=== PATIENT | male | born 1960 | race Caucasian/White ===

== ENCOUNTER → 2017-04-21 | Outpatient (CLI) | payer OTHER ==
[~2017-04-21] MED LIST: ACYCLOVIR400 MG PO; ADVAIR 250/501 EA INH; ASPIRIN CHEWABL81 MG PO; CLARITIN REDITA10 MG PO; COMBIVENT1 ARO IH; CORDARONE200 MG PO; COREG12.5 MG PO; Clopidogrel75 MG PO; Coumadin5 MG PO; DILTIA XT240 MG PO; DOXYCYCLINE100 M3 PO; EPA1000 MG PO; FLEXERIL5 MG PO; FLONASE0.05 MG/AC NS; FLUCONAZOLE200 MG PO; LASIX40 MG PO; MOTRIN800 MG PO; MULTI VITAMINS1 TAB PO; NYSTATIN100000 U/M PO; OMEPRAZOLE20 MG PO; OMEPRAZOLE40 MG PO; PREDNISONE10 MG PO; PROPAFENONE HC150 MG PO; SIMVASTATIN20 MG PO; SINGULAIR10 MG PO; SPIRIVA18 MCG PO; TOPROL XL25 MG PO; VICODIN 5/500 505 MG PO; VITAMIN D1000 IU PO; XARELTO20 M1 PO; ZOCOR40 MG PO
[2017-04-21 12:00] LABS: HEMATOCRIT 38.3 % (42.0-52.0); HEMOGLOBIN 12.2 g/dl (14.0-18.0); MEAN CELL VOLUME 76.9 fl (80.0-94.0); MEAN CORPUSCULAR HGB 24.5 pg (27.0-31.0); MEAN CORPUSCULAR HGB CONC 31.9 g/dl (33.0-37.0); MEAN PLATELET VOLUME 11.3 fl (9.6-12.3); RED BLOOD COUNT 4.98 10*6/uL (4.50-5.90); RED CELL DISTRI WIDTH 14.6 % (0-14.5)
[2017-04-21 12:27] LABS: ALBUMIN 3.2 gm/dl (3.1-4.5); ALKALINE PHOSPHATASE 125 U/L (45-117); BUN 7 mg/dl (7-24); CHLORIDE 110 mmol/L (98-107); CHOLESTEROL 199 mg/dL (<200); CPK 80 U/L (39-308); CREATININE 0.87 mg/dL (0.70-1.30); HDL CHOLESTEROL 41 mg/dl (40-60); LDL CHOLESTEROL 130 mg/dL (9-159); SGOT/AST 21 IU/L (3-35); SGPT/ALT 16 U/L (12-78); SODIUM 140 mmol/L (136-145); TOTAL PROTEIN 7.7 gm/dL (6.4-8.2); TRIGLYCERIDES 141 mg/dl (<150); VLDL CHOLESTEROL 28 mg/dL (6-40)
== END | disposition home or self-care (01) ==
LOC: LAB 11:20
PROVIDERS: Family Medicine
DX: Z12.5 Encounter for screening for malignant neoplasm of prostate (principal); I25.10 Atherosclerotic heart disease of native coronary artery without angina pectoris; E78.00 Pure hypercholesterolemia, unspecified; F41.1 Generalized anxiety disorder; K21.9 Gastro-esophageal reflux disease without esophagitis; E74.00 Glycogen storage disease, unspecified; I21.9 Acute myocardial infarction, unspecified

== ENCOUNTER → 2017-10-03 | Outpatient (CLI) | payer OTHER ==
[2017-10-03 13:38] LABS: HEMATOCRIT 40.4 % (42.0-52.0); HEMOGLOBIN 13.2 g/dl (14.0-18.0); MEAN CELL VOLUME 79.5 fl (80.0-94.0); MEAN CORPUSCULAR HGB CONC 32.7 g/dl (33.0-37.0); MEAN PLATELET VOLUME 11.6 fl (9.6-12.3); RED BLOOD COUNT 5.08 10*6/uL (4.50-5.90); RED CELL DISTRI WIDTH 15.1 % (0-14.5)
[2017-10-03 13:44] LABS: ALBUMIN 3.7 gm/dl (3.1-4.5); ALKALINE PHOSPHATASE 112 U/L (45-117); BUN 7 mg/dl (7-24); CHLORIDE 103 mmol/L (98-107); CHOLESTEROL 198 mg/dL (<200); CREATININE 1.01 mg/dL (0.70-1.30); HDL CHOLESTEROL 42 mg/dl (40-60); LDL CHOLESTEROL 119 mg/dL (9-159); SGOT/AST 32 IU/L (3-35); SGPT/ALT 21 U/L (12-78); SODIUM 136 mmol/L (136-145); TOTAL PROTEIN 7.8 gm/dL (6.4-8.2); TRIGLYCERIDES 184 mg/dl (<150); VLDL CHOLESTEROL 37 mg/dL (6-40)
== END | disposition home or self-care (01) ==
LOC: LAB 13:00
PROVIDERS: Family Medicine
DX: E78.00 Pure hypercholesterolemia, unspecified (principal); I48.91 Unspecified atrial fibrillation; R53.83 Other fatigue; F41.1 Generalized anxiety disorder; E74.00 Glycogen storage disease, unspecified; I25.10 Atherosclerotic heart disease of native coronary artery without angina pectoris; K21.9 Gastro-esophageal reflux disease without esophagitis

== ENCOUNTER → 2017-11-21 | Day surgery (SDC) | payer OTHER ==
[~2017-11-21] VITALS: Ht 172.7 cm; Wt 74.8 kg
[~2017-11-21] MED LIST changes: +ARNUITY ELLIPT50 MCG NAS; +AZELASTINE137 MCG/0. NAS; +DULERA 200 MCG8.8 GM INH; +FERGON240 MG PO; +GOOD NEIGHBOR150 M1 PO; +IPRATROPIUM BRO15 ML NAS; +PROVENTIL HFA6.7 GM INH; +VENTOLIN 02.5 MG/3 M INH; -VITAMIN D1000 IU PO; +VITAMIN D50000 UNIT PO
--- NOTE | ~2017-11-21 | PROC NOTE ---
[place], [place] PROCEDURE NOTE [id number] UNIT #: [id number] ROOM: DOCTOR: MILADY COOPER MD,ROBERT BIRTHDATE: [birth year] DOS: 11/21/2017 OUTPATIENT BRONCHOSCOPY REPORT PREOPERATIVE DIAGNOSES: Persistent severe nonresolving cough with intermittent wheezing with maximum medical management. POSTOPERATIVE DIAGNOSES: Evident acute bronchitis and minimal secretion present in the endobronchial tree, which was removed with the help of normal saline wash. PROCEDURE DESCRIPTION: Informed consent was obtained for the patient. The patient was brought to the OR and placed in supine position. Conscious sedation administered by the Anesthesia Department. After achieving proper sedation, airway introduced into the mouth. Bronchoscope advanced through the airway into laryngeal area. Epiglottis and vocal cords were seen. Vocal cords were moving symmetrically with movements. Bronchoscope was advanced to the vocal cord further into the tracheal lumen, which was noted with a small amount of scattered secretions suctioned out. Inflammatory changes of tracheal lumen was noted. All the endobronchial tree including right upper, right middle, right lower, left upper, lingula, and lower lobe bronchial all examined. All the secretions are removed from the endobronchial tree and sent for culture. Procedure was well tolerated by the patient. Postoperative findings were discussed with the patient's sister in the recovery room. No change in treatment otherwise will be necessary. ROBERT HENNING MD CM:PROCNOTE:PROCEDURE NOTE [id number] ROBERT COOPER MD
[2017-11-21 07:54] VITALS: BP 131/80
[2017-11-21 08:20] VITALS: BP 142/74
[2017-11-21 08:35] VITALS: BP 134/71
[2017-11-21 08:50] VITALS: BP 138/62
[2017-11-22 13:06] LABS: ACID FAST SPEC PROCESSING Concentration (.)
[2017-12-19 13:03] LABS: ORGANISM ID, MOLD Final report (.); RESULT 1 Final Identification (.)
[2018-01-01 08:10] LABS: ACID FAST CULTURE Negative (.)
== END | disposition home or self-care (01) ==
LOC: SDC 11-20 08:53
PROVIDERS: Internal Medicine Critical Care Medicine
DX: J20.9 Acute bronchitis, unspecified (principal); E78.00 Pure hypercholesterolemia, unspecified; I48.91 Unspecified atrial fibrillation; I25.2 Old myocardial infarction; I50.9 Heart failure, unspecified; K21.9 Gastro-esophageal reflux disease without esophagitis; J44.9 Chronic obstructive pulmonary disease, unspecified; F41.8 Other specified anxiety disorders; Z98.890 Other specified postprocedural states; Z91.018 Allergy to other foods; Z88.1 Allergy status to other antibiotic agents; Z79.82 Long term (current) use of aspirin; Z79.01 Long term (current) use of anticoagulants; Z79.899 Other long term (current) drug therapy

== ENCOUNTER → 2018-07-06 | Outpatient (CLI) | payer OTHER ==
--- NOTE | ~2018-07-06 | PF ---
[place], [place] PULMONARY FUNCTION TEST [id number] UNIT #: [id number] ROOM: DOCTOR: MILADY COOPER MD,ROBERT BIRTHDATE: [birth year] DOS: 07/06/2018 REASON FOR TEST: Ordered by Dr. German for assessment of amiodarone therapy. BRIEF HISTORY: The patient is recorded 58-year-old male, height of 68 inches, weight of 160 pounds, BMI 24.3. The patient is reported with symptoms of shortness breath with exertion, nonproductive cough and wheezing. There were no past tobacco use. SPIROMETRY: FVC of 4.02 liters, 96% predicted value. FEV1 of 2.55 liters, 75% predicted value. Ratio of FEV1/FVC is 63%. Lung diffusion is recorded 95%, normal. IMPRESSION: The patient with findings consistent with mild COPD and normal lung diffusion. Plethysmography was not performed. Need testing with plethysmography. ROBERT HENNING MD CM:PFREPORT:PULMONARY FUNCTION TEST [id number] ROBERT COOPER MD
[2018-07-06 13:49] LABS: ALBUMIN 3.6 gm/dl (3.1-4.5); ALKALINE PHOSPHATASE 104 U/L (45-117); BUN 10 mg/dl (7-24); CHLORIDE 100 mmol/L (98-107); CREATININE 1.07 mg/dL (0.70-1.30); POTASSIUM 4.3 mmol/L (3.5-5.1); SGOT/AST 27 IU/L (3-35); SGPT/ALT 22 U/L (12-78); SODIUM 134 mmol/L (136-145)
== END | disposition home or self-care (01) ==
LOC: LAB 12:03 → CP 12:03
PROVIDERS: Internal Medicine Cardiovascular Disease
DX: I48.91 Unspecified atrial fibrillation (principal); Z79.899 Other long term (current) drug therapy

== ENCOUNTER → 2018-11-02 | Outpatient (CLI) | payer OTHER ==
[2018-11-02 16:40] LABS: BASO # 0.1 10*3/uL (0.0-0.1); BASO % 0.8 % (0.0-1.0); EOS # 0.7 10*3/uL (0.0-0.4); EOS % 8.1 % (1.0-4.0); HEMATOCRIT 41.9 % (42.0-52.0); HEMOGLOBIN 13.6 g/dl (14.0-18.0); LYMPH # 2.1 10*3/uL (1.3-4.4); LYMPH % 24.5 % (27.0-41.0); MEAN CELL VOLUME 85.3 fl (80.0-94.0); MEAN CORPUSCULAR HGB 27.7 pg (27.0-31.0); MEAN CORPUSCULAR HGB CONC 32.5 g/dl (33.0-37.0); MEAN PLATELET VOLUME 11.2 fl (9.6-12.3); MONO # 1.2 10*3/uL (0.1-1.0); MONO % 14.2 % (3.0-9.0); NEUT # 4.5 10*3/uL (2.3-7.9); NEUT % 52.2 % (47.0-73.0); PLATELET COUNT AUTOMATED 277 10*3/uL (130-400); RED BLOOD COUNT 4.91 10*6/uL (4.50-5.90); RED CELL DISTRI WIDTH 13.3 % (0-14.5); WHITE BLOOD COUNT 8.5 10*3/uL (4.8-10.8)
== END | disposition home or self-care (01) ==
LOC: LAB 15:47
PROVIDERS: Internal Medicine Critical Care Medicine
DX: Z79.899 Other long term (current) drug therapy (principal)

== ENCOUNTER → 2020-12-19 | Outpatient (CLI) | payer OTHER | END | disposition home or self-care (01) | LOC: CT 13:50 | PROVIDERS: ATTEND Otolaryngology | DX: J33.0 Polyp of nasal cavity (principal); J34.89 Other specified disorders of nose and nasal sinuses; Z98.890 Other specified postprocedural states ==

== ENCOUNTER → 2023-08-04 | Outpatient (CLI) | payer OTHER ==
[2023-08-04 12:35] LABS: ALKALINE PHOSPHATASE 96 U/L (46-116); BUN 9 mg/dl (9-23); CHLORIDE 102 mmol/L (98-107); POTASSIUM 4.3 mmol/L (3.4-5.1); SGPT/ALT 9 U/L (5-49); TOTAL PROTEIN 7.7 gm/dL (6.0-8.0)
== END | disposition home or self-care (01) ==
LOC: LAB 11:46
PROVIDERS: ATTEND Orthopaedic Surgery
DX: R53.83 Other fatigue (principal); M25.579 Pain in unspecified ankle and joints of unspecified foot

== ENCOUNTER → 2023-08-26 | Outpatient (CLI) | payer OTHER | END | disposition home or self-care (01) | LOC: CARD 01:28 | PROVIDERS: ATTEND Internal Medicine Cardiovascular Disease | DX: I25.10 Atherosclerotic heart disease of native coronary artery without angina pectoris (principal); R06.09 Other forms of dyspnea ==